=== PATIENT | male | born 1995 | race Caucasian/White ===

== ENCOUNTER 2020-09-18 09:14 | Emergency (ER) | payer OTHER ==
[~2020-09-18] VITALS: Ht 190.5 cm; Wt 89.4 kg
[~2020-09-18 09:14] MED LIST: AMOXICILLIN875 MG PO; BENTYL 10 MG CA10 M1 PO; CLONIDINE; CONCERTA36 M1 PO; CONCERTA36 MG; KAPVAY0.1 MG PO; SERTRALINE; TRILEPTAL600 MG PO
[2020-09-18] MEDS ORDERED: BUSPIRONE HCL15 MG PO (09:38)
[2020-09-18 10:20] LABS: URINE BILIRUBIN NEGATIVE (Negative); URINE BLOOD NEGATIVE (Negative); URINE CLARITY CLEAR; URINE COLOR YELLOW; URINE GLUCOSE-RANDOM NEGATIVE (Negative); URINE KETONES TRACE (Negative); URINE LEUKOCYTES-REFLEX NEGATIVE (Negative); URINE NITRITE-REFLEX NEGATIVE (Negative); URINE PROTEIN TRACE (Negative); URINE SPECIFIC GRAVITY >= 1.030 (1.005-1.030); URINE UROBILINOGEN 0.2 E.U./dl (0.2-1.0)
[2020-09-18 10:49] LABS: ABSOLUTE EOSINOPHILS 0.1 thou/uL (0.0-0.7); ABSOLUTE LYMPHOCYTES 1.2 thou/uL (0.8-5.3); ABSOLUTE MONOCYTES 0.6 thou/uL (0.0-1.2); BASOPHILS 0.2 %; EOSINOPHILS 1.6 %; HEMOGLOBIN 15.3 gm/dL (14.0-18.0); LYMPHOCYTES 13.3 %; MCH 29.7 pg (26.0-34.0); MCHC 34.8 g/dL (28.0-37.0); MCV 85.4 fL (80.0-100.0); MONOCYTES 6.6 %; MPV 7.6 fl. (7.2-11.1); NUCLEATED RBCS 0 /100WBC; PLATELET COUNT* 185 thou/uL (150-400); POLYS 78.3 %; RBC 5.15 mil/uL (4.50-6.00); RDW-CV 12.8 % (10.5-14.5); WBC 8.9 thou/uL (4.0-11.0)
[2020-09-18 11:07] LABS: CREATININE 1.1 mg/dL (0.6-1.3); POTASSIUM 3.7 mmol/L (3.5-5.1)
[2020-09-18 11:12] LABS: ALBUMIN 4.4 g/dL (3.4-5.0); TOTAL BILIRUBIN 0.3 mg/dL (<0.1-1.0); TOTAL PROTEIN 8.1 g/dL (6.4-8.2)
[2020-09-18] MEDS ORDERED: NAPROSYN500 MG PO (13:05)
[2020-09-18] MEDS ORDERED: TRAMADOL 50 MG50 MG PO ×2 (13:05→13:11)
[2020-09-18 13:20] VITALS: BP 118/68
== END 2020-09-18 13:21 | disposition home or self-care (01) ==
LOC: M.ERS 09:14
PROVIDERS: Nurse Practitioner Family
DX: N50.3 Cyst of epididymis (principal); E78.00 Pure hypercholesterolemia, unspecified; Z79.899 Other long term (current) drug therapy

== ENCOUNTER 2020-09-22 21:10 | Emergency (ER) | payer BC ==
[~2020-09-22] VITALS: Ht 190.5 cm; Wt 88.5 kg
[~2020-09-22 21:10] MED LIST changes: +BUSPIRONE HCL15 MG PO; +NAPROSYN500 MG PO; +TRAMADOL 50 MG50 MG PO
[2020-09-22] MEDS ORDERED: SERTRALINE HCL100 MG PO (21:24)
[2020-09-22 22:29] LABS: ABSOLUTE EOSINOPHILS 0.5 thou/uL (0.0-0.7); ABSOLUTE LYMPHOCYTES 3.4 thou/uL (0.8-5.3); ABSOLUTE MONOCYTES 0.7 thou/uL (0.0-1.2); ABSOLUTE NEUTROPHILS 3.3 thou/uL (1.6-8.1); BASOPHILS 0.4 %; EOSINOPHILS 6.3 %; HEMATOCRIT 40.5 % (42.0-52.0); HEMOGLOBIN 14.1 gm/dL (14.0-18.0); LYMPHOCYTES 42.9 %; MCH 29.7 pg (26.0-34.0); MCHC 34.7 g/dL (28.0-37.0); MCV 85.5 fL (80.0-100.0); MPV 7.7 fl. (7.2-11.1); NUCLEATED RBCS 0 /100WBC; PLATELET COUNT* 209 thou/uL (150-400); POLYS 41.4 %; RBC 4.74 mil/uL (4.50-6.00); RDW-CV 12.8 % (10.5-14.5); WBC 7.9 thou/uL (4.0-11.0)
[2020-09-22 22:34] LABS: CREATININE 1.1 mg/dL (0.6-1.3); POTASSIUM 3.6 mmol/L (3.5-5.1)
[2020-09-22 22:38] LABS: ALBUMIN 4.4 g/dL (3.4-5.0); TOTAL BILIRUBIN 0.1 mg/dL (<0.1-1.0); TOTAL PROTEIN 7.9 g/dL (6.4-8.2)
[2020-09-22 23:03] LABS: AMP/METHAMP Negative (Negative); BARBITURATES Negative (Negative); BENZODIAZEPINES Negative (Negative); COCAINE Negative (Negative); METHADONE Negative (Negative); OPIATES Negative (Negative); PCP Negative (Negative); THC Negative (Negative)
[2020-09-22 23:11] LABS: URINE BILIRUBIN NEGATIVE (Negative); URINE BLOOD NEGATIVE (Negative); URINE CLARITY CLEAR; URINE COLOR YELLOW; URINE GLUCOSE-RANDOM NEGATIVE (Negative); URINE KETONES NEGATIVE (Negative); URINE LEUKOCYTES-REFLEX NEGATIVE (Negative); URINE NITRITE-REFLEX NEGATIVE (Negative); URINE PROTEIN NEGATIVE (Negative); URINE SPECIFIC GRAVITY 1.015 (1.005-1.030); URINE UROBILINOGEN 0.2 E.U./dl (0.2-1.0)
[2020-09-23 00:30] VITALS: BP 131/80
--- NOTE | 2020-09-25 13:46 | EKG ---
[place] [address] ELECTROCARDIOGRAM REPORT Name: RACQUEL NELSON Room: [facility]#: [id number] Admission: 09/22/20 Attend Phys: Discharge: 09/23/20 Date of : 89 Date of Service: 09/22/202122 Report #: [id number] THIS REPORT FOR: //name// [facility] ED Test Date: 2020-09-22 Test Time: 21:23:42 Pat Name: RACQUEL NELSON Department: Room: Gender: Edger Hand: : 1995 Requested By: Michelle Pérez Order Number: [id number] Maddi MD: Stephan Mills Measurements Intervals [place] Rate: 75 P: 68 NC: 159 QRS: 90 QRSD: 102 T: 47 QT: 386 QTc: 432 Interpretive Statements Sinus rhythm Borderline right axis deviation No previous ECG available for comparison Electronically Signed On 09-25-2020 13:46:34 CDT by Stephan Mills [email or web address] <ELECTRONICALLY SIGNED> By: Stephan Milsl MD, [facility] 09/25/20 1346 22 22 Stephan Mills MD, [facility] /EPI
== END 2020-09-23 00:31 | disposition home or self-care (01) ==
LOC: M.ERS 21:10
PROVIDERS: Personal Emergency Response Attendant
DX: J32.0 Chronic maxillary sinusitis (principal); J32.3 Chronic sphenoidal sinusitis; J32.2 Chronic ethmoidal sinusitis; E78.00 Pure hypercholesterolemia, unspecified; Z79.899 Other long term (current) drug therapy